=== PATIENT | female | born 1985 | race Caucasian/White ===

== ENCOUNTER → 2018-12-02 15:40 | Outpatient (CLI) | payer MEDICAID, SELFPAY ==
[2017-06-28 22:33] VITALS: BMI 19.5
[2018-12-05 13:08] LABS: HPV Reflexed? NOT INDICATED
== END ==
PROVIDERS: Visit Provider Obstetrics & Gynecology
DX: Z12.4 Encounter for screening for malignant neoplasm of cervix (principal)
CPT/HCPCS: 88175; G0145

== ENCOUNTER 2019-05-17 01:32 | Emergency (ER) | payer MEDICAID, SELFPAY ==
[2019-05-17 01:33] VITALS: BP 132/102; PULSE 109; RESP 18; TEMP 36.7; O2SAT 98; BMI 18.8
--- NOTE | 2019-05-17 01:33 | RAD_ITS ---
HISTORY: TTraumaRAD-EXT/JT ADDITIONAL HISTORY: None provided. COMPARISON: None TECHNIQUE: Right ankle 3 views Number of images including paperwork: 3 FINDINGS: BONES: No acute fracture. JOINTS: No subluxation. SOFT TISSUES: No distinct foreign body. RAD/Ankle min 3 Views IMPRESSION: No acute osseous abnormality. at 0218 Reported and signed by: Mariama Edge MD Electronically Signed: Mariama Edge MD at 2:18 EDT Tel , Service support ,
--- NOTE | 2019-05-17 01:33 | RAD_ITS ---
HISTORY: TTraumaRAD-EXT/JT ADDITIONAL HISTORY: None provided. COMPARISON: None TECHNIQUE: Right tibia fibula 2 views Number of images including paperwork: 3 FINDINGS: BONES: No acute fracture. JOINTS: No subluxation. SOFT TISSUES: No distinct foreign body. RAD/Tibia & Fibula 2 Views IMPRESSION: No acute osseous abnormality. at 0219 Reported and signed by: Mariama Edge MD Electronically Signed: Mairama Edge MD at 2:18 EDT Tel , Service support ,
--- NOTE | 2019-05-17 01:33 | RAD_ITS ---
HISTORY: TTraumaRAD-EXT/JT ADDITIONAL HISTORY: None provided. COMPARISON: None TECHNIQUE: Right foot 3 views Number of images including paperwork: 3 FINDINGS: BONES: No acute fracture. JOINTS: No subluxation. SOFT TISSUES: No distinct foreign body. RAD/Foot min 3 Views IMPRESSION: No acute osseous abnormality. at 0217 Reported and signed by: Mariama Edge MD Electronically Signed: Mariama Edge MD at 2:17 EDT Tel , Service support ,
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
[2019-05-17] MEDS: HYDROcodone Bitartrate/Apap 5/325 Tablet PO (01:41)
[2019-05-17 02:52] VITALS: BP 130/77; PULSE 94; RESP 18; O2SAT 98
== END 2019-05-17 02:54 | disposition home or self-care (01) ==
LOC: ED 02:01
PROVIDERS: Emergency Provider Emergency Medicine
DX: S87.81XA Crushing injury of right lower leg, initial encounter (principal); S80.811A Abrasion, right lower leg, initial encounter; W23.0XXA Caught, crushed, jammed, or pinched between moving objects, initial encounter; Y93.9 Activity, unspecified; Y92.9 Unspecified place or not applicable; E11.9 Type 2 diabetes mellitus without complications; Z79.4 Long term (current) use of insulin; F17.200 Nicotine dependence, unspecified, uncomplicated
CPT/HCPCS: 73590; 73610; 73630; 99284

== ENCOUNTER 2021-07-27 15:51 | Inpatient (IN) | payer MEDICAID, SELFPAY ==
[2021-07-27] VITALS (12 sets, daily range): BP systolic 113–146; BP diastolic 61–94; PULSE 98–123; RESP 15–28; TEMP 36.8–36.9; O2SAT 97–100; BMI 19.5; BMI 15.9
--- NOTE | 2021-07-27 16:09 | ED.VIS.GI ---
HPI HPI - GI History of Present Illness Chief Complaint: Abd Pain Detail of Chief Complaint: Elevated blood sugar. Informant: patient Abdominal Pain/Flank Pain Onset: Days Context: Gradual Onset Timing: Continuous Location: Diffuse Current Severity: Mild Maximum Severity: Mild Worsened by: Nothing Relieved by: Nothing Nausea/Vomiting/Emesis GI Symptom: Positive for Nausea; Negative for Vomiting Diarrhea/Melena/Hematochezia GI Symptom: Positive for Diarrhea Onset: Days Stool Quality: Positive for Loose Severity: Mild Associated Symptoms Associated Symptoms: Negative for Dysuria, Frequency, Hematuria and Urgency Narrative Narrative: 36-year-old female history of diabetes. States last several days she is at elevated blood sugars greater than 300. Associated nausea no vomiting. Diarrhea. Also states she has some abdominal discomfort and bloating. States abdominal discomfort is diffuse. She denies any fever. No dysuria. She is never had any abdominal surgeries. Today her blood sugars were over 500. Prior similar symptoms: Yes Recent Illness/Hospitalization: No PFSH PFSH Medical History Diabetes type 1, controlled Heart murmur Home Medications insulin aspart U-100 100 unit/mL subcutaneous solution 8 unit SC TID #10 ml 09/12/17 [Rx Last Taken 07/26/21] insulin glargine 100 unit/mL (3 mL) subcutaneous pen 24 unit SC QHS #15 ml 09/12/17 [Rx Last Taken 07/26/21] Allergy/AdvReac Type Severity Reaction Status Date / Time No Known Allergies Allergy Verified 05/17/19 01:33 Family History Unknown Asthma Cancer Diabetes Skin cancer Social History Smoking Status: Current every day smoker tobacco type: cigarettes alcohol intake: current substance use type: does not use ROS ROS ED ROS Narrative Nausea and diarrhea. Elevated blood sugar. Abdominal bloating. Review of Systems ROS Unobtainable: Denies due to encephalopathy Constitutional Constitutional ED: Denies chills, fever(s) or subjective ENT ENT ED: Denies ear pain or sore throat Cardiovascular Cardiovascular: Denies chest pain Respiratory/Chest Respiratory/Chest: Denies cough or dyspnea Gastrointestinal Gastrointestinal: Reports abdominal pain, diarrhea and nausea; Denies vomiting Genitourinary Genitourinary ED: Denies dysuria or hematuria Musculoskeletal Musculoskeletal: Denies myalgias Integumentary Denies rash Neurologic Neurologic: Denies headache(s) Psychiatric Psychiatric: Denies depression Endocrine Endocrinology: Denies polyuria Hematologic/Lymphatic Hematologic/Lymphatic: Denies easy bruising Allergic/Immunologic Allergic/Immunologic ED: Denies urticaria EXAM Physical Exam Narrative Exam Narrative: 36-year-old female clinically looks dehydrated. Vital signs are stable afebrile. H EENT exam dry mucous memories. Neck nontender no lymphadenopathy. Lungs clear to auscultation bilaterally. Heart regular rhythm rate about 100. No murmur. Abdomen mildly distended diffusely mildly tender. No peritoneal signs. No hernia or mass. No localizing right upper or right lower quadrant tenderness. Positive bowel sounds. Moving all 4 extremities. Nontender. No edema. Back nontender. Neurologically she is awake and alert moving all 4 extremities. No focal deficits. Const Vital Signs: 07/27/21 15:52 07/27/21 18:01 07/27/21 18:06 Temperature 98.2 F Temperature Source Temporal Pulse Rate 100 123 H Respiratory Rate 18 28 H Blood Pressure 144/94 H 139/89 H Blood Pressure Mean 110 105 Pulse Ox 100 100 Oxygen Delivery Method Room Air Room Air Positive well nourished and well developed; Negative for obese, cachectic, contractures or unkempt General Appearance ED: well developed and NAD; Negative for unkempt, cachectic or contractures Nutritional Appearance: Negative for cachectic or obese HEENT Reports dry mucous membranes normocephalic and atraumatic Mouth ED: Yes dry mucous membranes Mouth: dry mucous membranes Eyes PERRL and EOMs intact bilaterally Neck no lymphadenopathy, supple and no JVD General: Negative for tenderness Resp normal respiratory effort and clear to auscultation bilaterally Auscultation: Negative for rhonchi or wheezes Cardio regular rate, regular rhythm, S1 normal heart sound, S2 normal heart sound and no murmurs GI no masses; Negative for non-tender or non-distended Inspection: abdominal distention Auscultation: normoactive bowel sounds Palpation: soft and tender; Negative for guarding, rigid or rebound tenderness present Back/Spine no CVA tenderness General Back: Negative for CVA tenderness Extremity full ROM General Extremety ED: Negative for edema or tenderness General Extremity: Negative for edema Neuro CN's II-XII intact bilaterally and moves all extremities Sensorium / Orientation: alert, oriented to person, oriented to place and oriented to time; Negative for confused, lethargic or stuporous Motor Exam: strength 5/5 throughout Psych mental status grossly normal Appearance: Negative for unkempt Skin Lesions: no lesions Rashes: no rashes MDM MDM MDM Narrative Medical decision making narrative: 36-year-old female with diabetes with elevated blood sugar rule out DKA versus diabetic hyperglycemia. She also clinically looks dehydrated be treated with IV fluids and has abdominal pain which will require CT and labs. The patient is elevated blood sugar even though she is not in DKA at this time she has a normal anion gap and no acetones. She will be treated with IV fluids and insulin drip which both have been ordered and started. She will be admitted to the ICU. On repeat exam she is currently doing well and is stable. Lab Data Attestation: I reviewed the patient's lab results. Lab results narrative: CBC White count 9.8. Hemoglobin 12.9.. Potassium is 6.1. Glucose 1141. No acetone. test negative. UA shows glucose in urine but no infection. Anion gap is 6 is her normal BUN and creatinine which I find surprising. CAT scan shows gastroparesis with increasing stool throughout her colon is distended bladder. Labs: Laboratory Results - last 24 hr 07/27/21 07/27/21 07/27/21 15:40 15:40 15:40 WBC 9.8 RBC 4.71 Hgb 12.9 Hct 42.4 MCV 90.0 MCH 27.4 MCHC 30.4 L RDW Std Deviation 49.1 H RDW Coeff of Jordon 14.8 H Plt Count 465 H MPV 9.8 Immature Gran % (Auto) 0.400 Neut % (Auto) 85.0 H Lymph % (Auto) 8.9 L [place] % (Auto) 4.8 Eos % (Auto) 0.4 Baso % (Auto) 0.5 Absolute Neuts (auto) 8.3 H Absolute Lymphs (auto) 0.87 Nucleated RBC % 0 Sodium Cancelled Potassium Cancelled Chloride Cancelled Carbon Dioxide Cancelled Anion Gap Cancelled BUN Cancelled Creatinine Cancelled Estim Creat Clear Calc Cancelled Est GFR (MDRD) Af Amer Cancelled Est GFR (MDRD) Non-Af Cancelled BUN/Creatinine Ratio Cancelled Glucose Cancelled Calcium Cancelled Total Bilirubin Cancelled AST Cancelled ALT Cancelled Alkaline Phosphatase Cancelled Total Protein Cancelled Albumin Cancelled Globulin Cancelled Albumin/Globulin Ratio Cancelled Lipase Cancelled Serum , Qual NEGATIVE Urine Color Urine Clarity Urine pH Ur Specific [place] Urine Protein Urine Glucose (UA) Urine Ketones Urine Occult Blood Urine Nitrite Urine Bilirubin Urine Urobilinogen Ur Leukocyte Esterase Urine RBC Urine WBC Ur Squamous Epith Cells Urine Bacteria Urine Mucus Acetone Level POC Glucose 07/27/21 07/27/21 07/27/21 16:21 16:21 17:28 WBC RBC Hgb Hct MCV MCH MCHC RDW Std Deviation RDW Coeff of Jordon Plt Count MPV Immature Gran % (Auto) Neut % (Auto) Lymph % (Auto) [place] % (Auto) Eos % (Auto) Baso % (Auto) Absolute Neuts (auto) Absolute Lymphs (auto) Nucleated RBC % Sodium Potassium Chloride Carbon Dioxide Anion Gap BUN Creatinine Estim Creat Clear Calc Est GFR (MDRD) Af Amer Est GFR (MDRD) Non-Af BUN/Creatinine Ratio Glucose Calcium Total Bilirubin AST ALT Alkaline Phosphatase Total Protein Albumin Globulin Albumin/Globulin Ratio Lipase Serum , Qual Urine Color Straw Urine Clarity Sl. Cloudy Urine pH 7.0 Ur Specific [place] 1.005 Urine Protein Negative Urine Glucose (UA) 1000 H Urine Ketones 5 H Urine Occult Blood Negative Urine Nitrite Negative Urine Bilirubin Negative Urine Urobilinogen Normal Ur Leukocyte Esterase Negative Urine RBC 0 SEEN Urine WBC 0 SEEN Ur Squamous Epith Cells 0-5 SEEN Urine Bacteria 0 SEEN Urine Mucus 0 SEEN Acetone Level NEGATIVE POC Glucose > 500 H* 07/27/21 07/27/21 17:44 17:50 WBC RBC Hgb Hct MCV MCH MCHC RDW Std Deviation RDW Coeff of Jordon Plt Count MPV Immature Gran % (Auto) Neut % (Auto) Lymph % (Auto) [place] % (Auto) Eos % (Auto) Baso % (Auto) Absolute Neuts (auto) Absolute Lymphs (auto) Nucleated RBC % Sodium Cancelled 128 L Potassium Cancelled 6.1 H* Chloride Cancelled 94 L Carbon Dioxide Cancelled 28.0 Anion Gap Cancelled 6 BUN Cancelled 14 Creatinine Cancelled 1.15 H Estim Creat Clear Calc Cancelled 52.46 Est GFR (MDRD) Af Amer Cancelled 68 Est GFR (MDRD) Non-Af Cancelled 56 L BUN/Creatinine Ratio Cancelled 12.2 Glucose Cancelled 1141 H* Calcium Cancelled 9.0 Total Bilirubin 0.30 AST 26 ALT 40 Alkaline Phosphatase 116 Total Protein 7.5 Albumin 3.4 Globulin 4.1 Albumin/Globulin Ratio 0.8 L Lipase 136 Serum , Qual Urine Color Urine Clarity Urine pH Ur Specific [place] Urine Protein Urine Glucose (UA) Urine Ketones Urine Occult Blood Urine Nitrite Urine Bilirubin Urine Urobilinogen Ur Leukocyte Esterase Urine RBC Urine WBC Ur Squamous Epith Cells Urine Bacteria Urine Mucus Acetone Level POC Glucose Radiography Diagnostic Testing: Clinical Impression(s) from Imaging Studies Abdomen/Pelvis CT 07/27/21 16:14 Rhythm Strip Rhythm Strip: Sinus Rhythm Rate: 109 Ectopy: None EKG Initial EKG: Attestation: I personally reviewed and interpreted this EKG as follows: Interpretation: Sinus Rhythm, No Acute Injury Pattern and Sinus Tachycardia Comments: Sinus tachycardia rate of 109 no acute signs of SC or ischemia. She does have peaked T waves. Critical Care Time Critical Care Time: Yes Critical care time (excluding procedures): 30-74 minutes, Discussing w/Patient &/or Family/Director Of Program Management, Discussing w/Consultants, Arranging Admission or Transfer, Performing Direct Patient Care at Bedside and - (33 MIN) Discharge Plan Dx/Rx/DC Orders Clinical Impression: Diabetes mellitus due to underlying condition with hyperosmolarity without nonketotic hyperglycemic-hyperosmolar coma, History of diabetes as a child, Hyperkalemia, Constipation, Diabetic gastroparesis Disposition Disposition: Acute Care [facility]
--- NOTE | 2021-07-27 16:14 | CT_ITS ---
STUDY: CT Abdomen And Pelvis W/ Contrast Injection 07/27/2021 5:11 PM REASON FOR EXAM: Female, 36 years old. Technologist Notes abdominal pain/bloating, hyperglycemia, type 1 diabetes, tubal ligation. abdominal pain TECHNIQUE: Transaxial images were obtained without oral contrast, and IV 75mL Isovue-300 intravenous contrast. Individualized dose optimization techniques were used for this CT. COMPARISON: 16 FINDINGS: The visualized lung bases are unremarkable. The visualized portions of the heart are within normal limits. Normal liver. Normal gallbladder and extrahepatic biliary system. Normal spleen. Normal pancreas. Normal bilateral adrenal glands. No acute findings of the right kidney. No acute findings of the left kidney. Diffuse distention of the stomach filled with food. Normal small intestine. Stool throughout the colon. The appendix is visualized and appears normal. There are calcifications of the abdominal aorta. This is consistent for atherosclerotic disease. There is no abdominal aortic aneurysm. Normal inferior vena cava. Subcentimeter mesenteric lymph nodes. The urinary bladder is distended. This can suggest urinary retention. Normal visualized uterus. There are bilateral tubal ligation clips. Normal abdominal wall. Normal osseous structures. IMPRESSION: (NOT LISTED IN ORDER OF SIGNIFICANCE) The urinary bladder is distended. This can suggest urinary retention. Diffuse distention of the stomach filled with food. This may represent gastroparesis. Other findings as above. Electronically Signed: Melvin Mcdermott MD at 17:24 EST , Service support , CT/Abdomen/Pelvis W IV Cont ONLY
[2021-07-27] MEDS: 0.9% Normal Saline 1,000 ML 999 ML IV ×4 (16:17→22:17)
[2021-07-27 16:26] LABS: Bacteria 0 SEEN /hpf (None Seen); Mucous, Urine 0 SEEN /hpf (<or=2+); Red Blood Cells-Urine 0 SEEN /hpf (0-5); White Blood Cells 0 SEEN /hpf (0-5)
[2021-07-27 16:32] LABS: Absolute Lymphocyte Count 0.87 X10^3/uL (0.83-4.51); Absolute Neutrophil Count 8.3 X10^3/uL (2.0-7.7); Basophil# 0.05 X10^3/uL; Basophil% 0.5 % (0-1); Eosinophil# 0.04 X10^3/uL; Eosinophils% 0.4 % (0-5); Hematocrit 42.4 % (37-47); Hemoglobin 12.9 g/dL (12.0-15.0); Lymphocyte # 0.87 X10^3/ul (0.83-4.51); Lymphocyte % 8.9 % (19-41); Mean Corp Hgb Conc 30.4 g/dL (32-36); Mean Corpuscular Hgb 27.4 pg (27.0-32.0); Mean Platelet Vol. 9.8 fl (6.2-12.0); Monocyte# 0.47 X10^3/uL; Monocyte% 4.8 % (0-10); NRBC Flagged by Analyzer 0 % (0-5); Neutrophil # 8.33 X10^3/uL (2.7-7.7); Platelet Count 465 K/mm3 (150-450); RBC Distribution Width CV 14.8 % (11.6-14.6); RBC Distribution Width SD 49.1 fl (35.1-43.9); Red Blood Count 4.71 M/mm3 (4.2-5.4); White Blood Count 9.8 K/mm3 (4.4-11.0)
[2021-07-27 16:33] LABS: Color, Urine Straw (Yellow); Glucose, Dipstick 1000 mg/dl (Normal); Ketone-Dipstick 5 mg/dl (Negative); Leukocyte Esterase-Dipstick Negative /ul (Negative); Nitrite-Dipstick Negative (Negative); Occult Blood-Urine Negative /ul (Negative); Protein-Dipstick Negative (Negative); Specific Gravity, Urine 1.005 (1.002-1.030); Urine Bilirubin Dipstick Negative (Negative); Urine Clarity Sl. Cloudy (Clear); Urine Urobilinogen Normal (Normal)
[2021-07-27 16:41] LABS: Squamous Epithelial Cells - UA 0-5 SEEN /hpf (5-10)
[2021-07-27] MEDS: 0.9% Normal Saline 1,000 ML 15 ML IV (16:54)
[2021-07-27 16:57] LABS: Internal QC Validated? YES +Cl - CLEAR BKGD; Pregnancy, Serum, hCG Quali. NEGATIVE Negative
[2021-07-27 17:35] LABS: Bedside Glucose > 500 mg/dL (70-110)
--- NOTE | 2021-07-27 17:49 | NUR.TO.PHY ---
Dr. Walker notified of wrong lab results. laboratory equipment installer stated he will be redoing the results and to disregard current. BRIANNE Arzate notified also
--- NOTE | 2021-07-27 18:00 | EKG12_ITS ---
Test Reason : ABDMINAL PAIN Blood Pressure : / mmHG Vent. Rate : 109 BPM Atrial Rate : 109 BPM P-R Int : 130 ms QRS Dur : 078 ms QT Int : 316 ms P-R-T Axes : 044 090 062 degrees QTc Int : 425 ms Sinus tachycardia Septal infarct , age undetermined , cannot be excluded Abnormal ECG Confirmed by MARIAM LOYA, RUSTY ([id number]), publication editor MONY NERI ([id number]) on 07/31/2021 10:25:28 AM Referred By: ABISAI Confirmed By:RUSTY BECERRA MD
[2021-07-27 18:19] LABS: ALB/GLOB Ratio 0.8 RATIO (0.9-2.4); AST(SGOT) 26 U/L (15-37); Albumin, Serum 3.4 g/dL (3.2-5.0); BUN 14 mg/dL (7-18); BUN/Creat Ratio 12.2 RATIO (10-20); Creatinine, Serum 1.15 mg/dL (0.55-1.02); Estimated Creatinine Clearance 52.46 ml/min; Globulin 4.1 g/dL (2.2-4.2); Glucose 1141 mg/dL (74-106); Lipase 136 U/L (73-393); Protein, Total 7.5 g/dL (6.4-8.2)
[2021-07-27 18:20] LABS: Alanine Aminotransfer ALT/SGPT 40 U/L (13-56); Alkaline Phosphatase 116 U/L (45-117); Sodium Level 128 mmol/L (136-145)
[2021-07-27 18:21] LABS: Anion Gap 6 (5-15); Chloride 94 mmol/L (98-107); Potassium 6.1 mmol/L (3.5-5.1)
[2021-07-27 18:25] LABS: EST Glomerular Filtration Rate 56 mL/min (>60); Est Glom Filt Rate - Afr Amer 68 mL/min (>60)
--- NOTE | 2021-07-27 18:32 | PCM.HP.STD ---
HPI - General General Date of Admission: 07/27/21 Date of Service: 07/27/21 Chief Complaint: Abdominal pain, hyperglycemia, malaise HPI Narrative ESTHER WEEMS, is a 36 F who presents to the emergency room at [facility] with a chief complaint of generalized abdominal pain, elevated blood sugar, and malaise. Patient is a type I diabetic, she tells me that she has been diabetic since the age of 10. Patient states her facilities mechanical design engineer is in [facility], she states she has been living out of hotels and her car. Labs obtained were obtained in the emergency room, patient's CBC was unremarkable except for a platelet count of 465,000. Patient's chemistry profile was abnormal for a sodium of 128, potassium of 6.1, chloride of 94, creatinine of 1.15, and glucose of 1141. Patient serum acetone level was negative, patient's urinalysis was remarkable for a urine glucose over thousand and ketones of 5 mg/dL. Patient had a CAT scan of her abdomen performed, it showed a large amount of stool throughout the colon, it also showed gastric contents suggestive of gastroparesis. Patient also had a distended urinary bladder. A Noyola catheter will be inserted in the ER, patient will be placed on insulin drip and she will be admitted to ICU for nonketotic hyperosmolar hyperglycemia. Patient will be given IV fluids, labs will be monitored. [facility] Medical History Diabetes type 1, controlled Heart murmur Home Medications insulin aspart U-100 100 unit/mL subcutaneous solution 8 unit SC TID #10 ml 09/12/17 [Rx Last Taken 07/26/21] insulin glargine 100 unit/mL (3 mL) subcutaneous pen 24 unit SC QHS #15 ml 09/12/17 [Rx Last Taken 07/26/21] Allergy/AdvReac Type Severity Reaction Status Date / Time No Known Allergies Allergy Verified 05/17/19 01:33 Family History Unknown Asthma Cancer Diabetes Skin cancer Social History Smoking Status: Current every day smoker tobacco type: cigarettes alcohol intake: current substance use type: does not use ROS Constitutional Constitutional: Reports fatigue, malaise and weakness; Denies anorexia, change in weight, fever(s) or night sweats Eyes Eyes: Denies blurry vision, change in eye color, change in vision, discharge from eye(s) or eye pain ENT HEENT: Denies abnormal hearing, dysphagia or ear pain Cardiovascular Cardiovascular: Denies chest pain, claudication, dyspnea on exertion, edema, lightheadedness or palpitations Respiratory/Chest Respiratory/Chest: Denies cough, hemoptysis, shortness of breath at rest or shortness of breath with exertion Gastrointestinal Gastrointestinal: Reports abdominal pain; Denies constipation, diarrhea, dyspepsia, hematemesis, hematochezia, melena, nausea or vomiting Genitourinary Genitourinary: Denies burning urination, difficulty urinating, dysuria, hematuria, urinary frequency, urinary hesitancy, urinary incontinence or urinary urgency Musculoskeletal Musculoskeletal: Denies back pain, joint pain, joint stiffness, joint swelling, myalgias or neck pain Neurologic Neurologic: Denies abnormal gait, abnormal speech, dizziness, focal weakness, headache(s), loss of vision, numbness, other visual disturbances, paresthesias, syncope or tingling Psychiatric Psychiatric: Denies anxiety, cognitive impairment, depression, irritability, mood swings or suicidal ideation Endocrine Endocrinology: Denies change in body appearance, cold intolerance, excessive sweating, heat intolerance, polydipsia or polyuria Hematologic/Lymphatic Hematologic/Lymphatic: Denies none, anemia, easy bleeding, easy bruising or lymphadenopathy Allergic/Immunologic Allergic/Immunologic: Denies rhinitis, urticaria, eczemia or asthma Vital Signs Vital Signs Vital Signs: 07/27/21 15:52 07/27/21 18:01 07/27/21 18:06 Temperature 98.2 F Temperature Source Temporal Pulse Rate 100 123 H Respiratory Rate 18 28 H Blood Pressure 144/94 H 139/89 H Blood Pressure Mean 110 105 Pulse Ox 100 100 Oxygen Delivery Method Room Air Room Air Weight Weight: 50.1 kg Body Mass Index (BMI) 19.5 Physical Exam Const alert, oriented x3 and no apparent distress Constitutional Narrative: Patient appears fatigued General Appearance: cooperative, well kempt and well developed Orientation / Consciousness: awake, oriented to person, oriented to place and oriented to time HEENT normocephalic, head/scalp atraumatic and hearing grossly normal bilaterally HEENT Narrative: Mucous membranes were dry Eyes PERRL, EOMs intact bilaterally and conjunctivae normal Neck nuchal rigidity, supple, no JVD, thyroid normal and no carotid bruits General: trachea midline Resp normal respiratory effort, no retractions, no use of accessory muscles and clear to auscultation bilaterally Auscultation: Negative for rales, rhonchi or wheezes Cardio regular rate, regular rhythm, S1 normal heart sound, S2 normal heart sound, no murmurs, no rub and no gallops GI normal to inspection, nondistended, normoactive bowel sounds, soft to palpation, non-tender and non-distended Extremity normal to inspection and no clubbing, cyanosis or edema Skin no rashes or lesions noted General Skin Exam: no breakdown Neuro oriented x3, CN's II-XII intact bilaterally, no focal motor deficits and no sensory deficits noted Sensorium / Orientation: awake and alert Speech: speech normal Psych thought process normal and affect normal Results Lab / Micro Data Result Diagrams: 07/27/21 15:40 07/27/21 17:50 Labs: Laboratory Results - last 24 hr 07/27/21 15:40: WBC 9.8, RBC 4.71, Hgb 12.9, Hct 42.4, MCV 90.0, MCH 27.4, MCHC 30.4 L, RDW Std Deviation 49.1 H, RDW Coeff of Jordon 14.8 H, Plt Count 465 H, MPV 9.8, Immature Gran % (Auto) 0.400, Neut % (Auto) 85.0 H, Lymph % (Auto) 8.9 L, [place] % (Auto) 4.8, Eos % (Auto) 0.4, Baso % (Auto) 0.5, Absolute Neuts (auto) 8.3 H, Absolute Lymphs (auto) 0.87, Nucleated RBC % 0 07/27/21 15:40: Sodium Cancelled, Potassium Cancelled, Chloride Cancelled, Carbon Dioxide Cancelled, Anion Gap Cancelled, BUN Cancelled, Creatinine Cancelled, Estim Creat Clear Calc Cancelled, Est GFR (MDRD) Af Amer Cancelled, Est GFR (MDRD) Non-Af Cancelled, BUN/Creatinine Ratio Cancelled, Glucose Cancelled, Calcium Cancelled, Total Bilirubin Cancelled, AST Cancelled, ALT Cancelled, Alkaline Phosphatase Cancelled, Total Protein Cancelled, Albumin Cancelled, Globulin Cancelled, Albumin/Globulin Ratio Cancelled, Lipase Cancelled 07/27/21 15:40: Serum , Qual NEGATIVE 07/27/21 16:21: Acetone Level NEGATIVE 07/27/21 16:21: Urine Color Straw, Urine Clarity Sl. Cloudy, Urine pH 7.0, Ur Specific [place] 1.005, Urine Protein Negative, Urine Glucose (UA) 1000 H, Urine Ketones 5 H, Urine Occult Blood Negative, Urine Nitrite Negative, Urine Bilirubin Negative, Urine Urobilinogen Normal, Ur Leukocyte Esterase Negative, Urine RBC 0 SEEN, Urine WBC 0 SEEN, Ur Squamous Epith Cells 0-5 SEEN, Urine Bacteria 0 SEEN, Urine Mucus 0 SEEN 07/27/21 17:28: POC Glucose > 500 H* 07/27/21 17:44: Sodium Cancelled, Potassium Cancelled, Chloride Cancelled, Carbon Dioxide Cancelled, Anion Gap Cancelled, BUN Cancelled, Creatinine Cancelled, Estim Creat Clear Calc Cancelled, Est GFR (MDRD) Af Amer Cancelled, Est GFR (MDRD) Non-Af Cancelled, BUN/Creatinine Ratio Cancelled, Glucose Cancelled, Calcium Cancelled 07/27/21 17:50: Sodium 128 L, Potassium 6.1 H*, Chloride 94 L, Carbon Dioxide 28.0, Anion Gap 6, BUN 14, Creatinine 1.15 H, Estim Creat Clear Calc 52.46, Est GFR (MDRD) Af Amer 68, Est GFR (MDRD) Non-Af 56 L, BUN/Creatinine Ratio 12.2, Glucose 1141 H*, Calcium 9.0, Total Bilirubin 0.30, AST 26, ALT 40, Alkaline Phosphatase 116, Total Protein 7.5, Albumin 3.4, Globulin 4.1, Albumin/Globulin Ratio 0.8 L, Lipase 136 Radiology Impression Abdomen/Pelvis CT 07/27/21 16:14 Assessment & Plan Assessment/Plan (1) Nonketotic hyperglycinemia: PLAN: 1. Nonketotic hyperosmolar hyperglycemia-patient will be started on an insulin drip, she will be given IV fluids, she will be admitted to ICU and labs will be monitored. #2 type 1 [id number] will need close follow-up with her facilities mechanical design engineer after discharge #3 hyperkalemia-this will be corrected after fluid administration and insulin administration, labs will be monitored #4 abdominal pain secondary to constipation-patient will be given lactulose #5 dehydration-IV fluids will be administered Charges/Coding Visit Charges Inpatient E&M: 14645 Init Hosp L3
[2021-07-27 19:41] LABS: Bedside Glucose > 500 mg/dL (70-110)
[2021-07-27 21:13] LABS: Anion Gap 9 (5-15); BUN 18 mg/dL (7-18); Calcium,Total 8.7 mg/dL (8.5-10.1); Chloride 104 mmol/L (98-107); Creatinine, Serum 1.06 mg/dL (0.55-1.02); EST Glomerular Filtration Rate 62 mL/min (>60); Est Glom Filt Rate - Afr Amer 75 mL/min (>60); Estimated Creatinine Clearance 46.38 ml/min; Glucose 671 mg/dL (74-106); Potassium 4.2 mmol/L (3.5-5.1); Sodium Level 137 mmol/L (136-145)
[2021-07-27] MEDS: Lactulose 20 GM/30 ML UDC 30 GM PO (21:28)
[2021-07-27 22:26] LABS: Bedside Glucose > 500 mg/dL (70-110)
[2021-07-27 22:26] LABS: Bedside Glucose 426 mg/dL (70-110)
[2021-07-27] MEDS: Dext 5%-0.45% NS 1,000 ML 200 ML IV (23:20)
[2021-07-27] MEDS: Acetaminophen 325 MG Tablet 650 MG PO (23:23)
[2021-07-28] VITALS (21 sets, daily range): BP systolic 100–147; BP diastolic 58–99; PULSE 90–112; RESP 12–22; TEMP 36.6–37.4; O2SAT 96–100
[2021-07-28 00:21] LABS: Bedside Glucose 255 mg/dL (70-110)
[2021-07-28 00:21] LABS: Bedside Glucose 192 mg/dL (70-110)
[2021-07-28 00:21] LABS: Bedside Glucose 207 mg/dL (70-110)
[2021-07-28 00:26] LABS: Anion Gap 7 (5-15); BUN 12 mg/dL (7-18); BUN/Creat Ratio 17.9 RATIO (10-20); Calcium,Total 7.9 mg/dL (8.5-10.1); Chloride 113 mmol/L (98-107); Creatinine, Serum 0.67 mg/dL (0.55-1.02); EST Glomerular Filtration Rate 104 mL/min (>60); Est Glom Filt Rate - Afr Amer 126 mL/min (>60); Estimated Creatinine Clearance 73.37 ml/min; Glucose 242 mg/dL (74-106); Potassium 4.2 mmol/L (3.5-5.1); Sodium Level 144 mmol/L (136-145)
[2021-07-28 01:55] LABS: Bedside Glucose 181 mg/dL (70-110)
[2021-07-28 04:13] LABS: Absolute Lymphocyte Count 2.31 X10^3/uL (0.83-4.51); Basophil# 0.04 X10^3/uL; Basophil% 0.5 % (0-1); Eosinophil# 0.11 X10^3/uL; Eosinophils% 1.4 % (0-5); Hematocrit 31.3 % (37-47); Hemoglobin 10.2 g/dL (12.0-15.0); Lymphocyte # 2.31 X10^3/ul (0.83-4.51); Lymphocyte % 28.8 % (19-41); Mean Corp Hgb Conc 32.6 g/dL (32-36); Mean Corpuscular Hgb 27.6 pg (27.0-32.0); Mean Corpuscular Volume 84.8 fL (81-99); Mean Platelet Vol. 9.3 fl (6.2-12.0); Monocyte# 0.56 X10^3/uL; NRBC Flagged by Analyzer 0 % (0-5); Neutrophil # 4.97 X10^3/uL (2.7-7.7); Neutrophil % 62.1 % (47-70); Platelet Count 357 K/mm3 (150-450); RBC Distribution Width CV 14.3 % (11.6-14.6); RBC Distribution Width SD 44.5 fl (35.1-43.9); Red Blood Count 3.69 M/mm3 (4.2-5.4)
[2021-07-28 04:33] LABS: Anion Gap 8 (5-15); BUN 12 mg/dL (7-18); BUN/Creat Ratio 20.4 RATIO (10-20); Calcium,Total 7.6 mg/dL (8.5-10.1); Chloride 109 mmol/L (98-107); Creatinine, Serum 0.59 mg/dL (0.55-1.02); EST Glomerular Filtration Rate 121 mL/min (>60); Est Glom Filt Rate - Afr Amer 147 mL/min (>60); Estimated Creatinine Clearance 83.32 ml/min; Glucose 336 mg/dL (74-106); Potassium 3.5 mmol/L (3.5-5.1); Sodium Level 139 mmol/L (136-145)
[2021-07-28] MEDS: Insulin Lispro 100 UNIT/ML INSULN.PEN 8 UNIT SC ×3 (07:57→16:34)
[2021-07-28] MEDS: Insulin Lispro 100 UNIT/ML INSULN.PEN SC ×4 (07:57→21:17)
[2021-07-28 08:01] LABS: Bedside Glucose 318 mg/dL (70-110)
[2021-07-28 08:46] LABS: Hemoglobin A1c > 14.0 % (3.8-5.6)
--- NOTE | 2021-07-28 08:48 | PN.HOSP_ITS ---
Subjective Subjective Resting comfortably. No issues overnight. Objective Data Objective Data Vital Signs: Vital Signs Temp Pulse Resp BP Pulse Ox 97.9 F 97 14 131/90 H 99 07/28/21 04:00 07/28/21 07:00 07/28/21 07:00 07/28/21 07:00 07/28/21 07:00 Oxygen Delivery Method Room Air Weight: 98 lb 3.2 oz Body Mass Index (BMI) 15.9 Intake & Output: Intake and Output for Last 24 Hours 07/27/21 07/28/21 07/29/21 03:59 03:59 03:59 Intake Total 4718.98 / 4720.91 251.93 / 251.93 Output Total 1725 / 1725 550 / 550 Balance 2993.98 / 2995.91 -298.07 / -298.07 Lab / Micro Data Result Diagrams: 07/28/21 03:45 07/28/21 03:45 Labs: Laboratory Results - last 24 hr 07/27/21 15:40: WBC 9.8, RBC 4.71, Hgb 12.9, Hct 42.4, MCV 90.0, MCH 27.4, MCHC 30.4 L, RDW Std Deviation 49.1 H, RDW Coeff of Jordon 14.8 H, Plt Count 465 H, MPV 9.8, Immature Gran % (Auto) 0.400, Neut % (Auto) 85.0 H, Lymph % (Auto) 8.9 L, [place] % (Auto) 4.8, Eos % (Auto) 0.4, Baso % (Auto) 0.5, Absolute Neuts (auto) 8.3 H, Absolute Lymphs (auto) 0.87, Nucleated RBC % 0 07/27/21 15:40: Sodium Cancelled, Potassium Cancelled, Chloride Cancelled, Carbon Dioxide Cancelled, Anion Gap Cancelled, BUN Cancelled, Creatinine Cancelled, Estim Creat Clear Calc Cancelled, Est GFR (MDRD) Af Amer Cancelled, Est GFR (MDRD) Non-Af Cancelled, BUN/Creatinine Ratio Cancelled, Glucose Cancelled, Calcium Cancelled, Total Bilirubin Cancelled, AST Cancelled, ALT Cancelled, Alkaline Phosphatase Cancelled, Total Protein Cancelled, Albumin Cancelled, Globulin Cancelled, Albumin/Globulin Ratio Cancelled, Lipase Cancelle d 07/27/21 15:40: Serum , Qual NEGATIVE 07/27/21 16:21: Acetone Level NEGATIVE 07/27/21 16:21: Urine Color Straw, Urine Clarity Sl. Cloudy, Urine pH 7.0, Ur Specific [place] 1.005, Urine Protein Negative, Urine Glucose (UA) 1000 H, Urine Ketones 5 H, Urine Occult Blood Negative, Urine Nitrite Negative, Urine Bilirubin Negative, Urine Urobilinogen Normal, Ur Leukocyte Esterase Negative, Urine RBC 0 SEEN, Urine WBC 0 SEEN, Ur Squamous Epith Cells 0-5 SEEN, Urine Bacteria 0 SEEN, Urine Mucus 0 SEEN 07/27/21 17:28: POC Glucose > 500 H* 07/27/21 17:44: Sodium Cancelled, Potassium Cancelled, Chloride Cancelled, Carbon Dioxide Cancelled, Anion Gap Cancelled, BUN Cancelled, Creatinine Cancelled, Estim Creat Clear Calc Cancelled, Est GFR (MDRD) Af Amer Cancelled, Est GFR (MDRD) Non-Af Cancelled, BUN/Creatinine Ratio Cancelled, Glucose Cancelled, Calcium Cancelled 07/27/21 17:50: Sodium 128 L, Potassium 6.1 H*, Chloride 94 L, Carbon Dioxide 28.0, Anion Gap 6, BUN 14, Creatinine 1.15 H, Estim Creat Clear Calc 52.46, Est GFR (MDRD) Af Amer 68, Est GFR (MDRD) Non-Af 56 L, BUN/Creatinine Ratio 12.2, Glucose 1141 H*, Calcium 9.0, Total Bilirubin 0.30, AST 26, ALT 40, Alkaline Phosphatase 116, Total Protein 7.5, Albumin 3.4, Globulin 4.1, Albumin/Globulin Ratio 0.8 L, Lipase 136 07/27/21 19:35: POC Glucose > 500 H* 07/27/21 20:14: POC Glucose > 500 H* 07/27/21 20:36: Sodium 137, Potassium 4.2, Chloride 104, Carbon Dioxide 24.0, Anion Gap 9, BUN 18, Creatinine 1.06 H, Estim Creat Clear Calc 46.38, Est GFR (MDRD) Af Amer 75, Est GFR (MDRD) Non-Af 62, BUN/Creatinine Ratio 17.0, Glucose 671 H*, Calcium 8.7 07/27/21 21:26: POC Glucose 426 H 07/27/21 22:23: POC Glucose 255 H 07/27/21 23:08: POC Glucose 207 H 07/27/21 23:30: Sodium 144, Potassium 4.2, Chloride 113 H, Carbon Dioxide 24.0, Anion Gap 7, BUN 12, Creatinine 0.67, Estim Creat Clear Calc 73.37, Est GFR (MDRD) Af Amer 126, Est GFR (MDRD) Non-Af 104, BUN/Creatinine Ratio 17.9, Glucose 242 H, Calcium 7.9 L 07/28/21 00:14: POC Glucose 192 H 07/28/21 01:43: POC Glucose 181 H 07/28/21 03:45: Sodium 139, Potassium 3.5, Chloride 109 H, Carbon Dioxide 22.0, Anion Gap 8, BUN 12, Creatinine 0.59, Estim Creat Clear Calc 83.32, Est GFR (MDRD) Af Amer 147, Est GFR (MDRD) Non-Af 121, BUN/Creatinine Ratio 20.4 H, Glucose 336 H, Calcium 7.6 L 07/28/21 03:45: WBC 8.0, RBC 3.69 L, Hgb 10.2 L, Hct 31.3 L, MCV 84.8 D, MCH 27.6, MCHC 32.6 D, RDW Std Deviation 44.5 H, RDW Coeff of Jordon 14.3, Plt Count 357, MPV 9.3, Immature Gran % (Auto) 0.200, Neut % (Auto) 62.1, Lymph % (Auto) 28.8, [place] % (Auto) 7.0, Eos % (Auto) 1.4, Baso % (Auto) 0.5, Absolute Neuts (auto) 5.0, Absolute Lymphs (auto) 2.31, Nucleated RBC % 0 07/28/21 03:45: Hemoglobin A1c > 14.0 H 07/28/21 07:52: POC Glucose 318 H Radiography Diagnostic Testing: Radiology Impression Abdomen/Pelvis CT 07/27/21 16:14 Rhythm Strip Rhythm Strip: Sinus Rhythm Rate: 109 Ectopy: None Physical Exam Const alert, oriented x3 and no apparent distress General Appearance: cooperative HEENT normocephalic and moist oral mucous membranes Eyes PERRL, EOMs intact bilaterally and conjunctivae normal Neck supple and no JVD Resp normal respiratory effort, no retractions, no use of accessory muscles and clear to auscultation bilaterally Auscultation: Negative for crackles, rales, rhonchi or wheezes Cardio regular rate, regular rhythm, S1 normal heart sound, S2 normal heart sound and no murmurs GI soft to palpation, non-tender and non-distended; Negative for hepatosplenomegaly Extremity no clubbing, cyanosis or edema Skin no rashes or lesions noted Neuro no focal motor deficits and no sensory deficits noted Psych affect normal Appearance: appropriate Assessment & Plan Assessment/Plan (1) Nonketotic hyperglycinemia: PLAN: 1. Nonketotic hyperosmolar hyperglycemia/DM 1 -Very few ketones in the urine and no acetone in the blood -She is off of an insulin drip and is placed on long-acting insulin as well as 3 times daily insulin with meals -Accu-Cheks AC at bedtime, will make adjustments as necessary and monitor -Her diabetes is completely out of control, her A1c on admission was over 14 -Continue with IV fluids for dehydration, she did receive 2 doses of lactulose for constipation DVT: Ambulation Charges/Coding Visit Charges Inpatient E&M: 03426 Subs Hosp L2
--- NOTE | 2021-07-28 10:46 | CASEMGMT ---
Addendum entered by Yrn Curiel 07/28/21 14:57: [facility] Van transportation arranged for pick-up @ 1300 to take pt to Dashawn Luis NP and Dr Puckett's appts. Addendum entered by Yrn Curiel 07/28/21 14:41: Dr Puckett's office has available appt for Aug 08 @ 3 PM. Dashawn Luis, DIRECTOR WEIGHTS AND MEASURES for Dr Hein (PCP), has an appt available also on Aug 08 @ 2 PM. Pt made aware. She states she would like to get established w/both Dr Hein and Dr Puckett and would like these appts. Appts scheduled and documented in pt's discharge plan. Mercedes, SW, aware, as pt will need transportation. Original Note: RN CM CRITICAL CARE CNS CM to room to meet with patient for initial transition planning/care coordination assessment. BRIANNE JOHNSON introduced self and role at [facility]. Pt voices understanding and consents to assessment at this time. Pt resting in bed in no distress at this time. Pt is A/O at this time and answers all questions appropriately. Care providers, pharmacy, and demographics verified/updated at this time. PCP: No PCP. Pt states she saw someone in February in [place] for a check-up for my diabetes but does not remember her name. Pt provided w/list of local PCP's and also [facility] transportation contact info. She was made aware they can take her to any [facility] office or affiliate office. Specialists: None. Pt given Dr Puckett Rac Card and made aware she is affiliate of [facility] and [facility] Van transportation could provide assistance to her office, if needed. Pt is interested in seeing Dr Puckett. TC placed to Dr Puckett's office. They are in-network w/pt's insurance. Referral to PCP is not required, but preferred. Next available appt would be in Oct. Pt made aware. She states she would like to have an appt scheduled. [facility]acy[facility] Insulin/supplies: Pt has glucometer and test strips w/her. She just picked up insulin syringes @ [facility] in [place] a couple days ago, but states they were in her and her husbands car and she does not know if they are still in the car. She is also out of lancets/needles for her True Draw lancet device. She states she has alcohol swabs. TC to [facility] and spoke w/Adri. She confirms pt did roller picker insulin syringes a couple days ago, and per insurance, she would not be able to refill them again until 08/15. They do not sell insulin syringes OTC. She confirms there is a refill remaining on the lancets and she will get those ready for her to be picked up. She also states they were in the process of refilling her insulin and that will be ready for pt to roller picker when she is ready. Pt made aware of all of the above. She was also made aware that [facility] does sell insulin syringes OTC. Box of 100 is <$13. DME: Pt does not use any other DME. Insurance: [employer] Prescription Benefit: Yes LNOK: , Arturo. She states her and her only have one cell phone and she has the phone w/her. She does not know how to contact him. Zander and Krystle Marquez are listed on pt's demographics. They are her mother and [id number] and they also would not know how to contact her . Pt has 2 children, ages 16 and 14 and they are living w/her in-laws currently. Pt states, They're safe. Living Arrangements: Pt states she and her have been living out of their car for about a year. 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 Her and her have one vehicle and she does not know where he is at this time. PLAN: TBD. SW to talk w/pt about current living situation. Cheli HAND RN CM
[2021-07-28] MEDS: Glucerna Shake 120 ML LIQUID PO ×3 (11:50→21:21)
[2021-07-28 12:01] LABS: Bedside Glucose 284 mg/dL (70-110)
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
--- NOTE | 2021-07-28 16:05 | PCS.PANDOC ---
PANDEMIC DOCUMENTATION INITIATED: Date: 07/28/2021 Time: 2014
[2021-07-28 16:46] LABS: Bedside Glucose 378 mg/dL (70-110)
--- NOTE | 2021-07-28 16:54 | CASEMGMT ---
Social Work RODRIGUEZ spoke with [facility] [place] [facility] who confirms that pt will need to call on day of discharge and if bed is available, pt can be admitted to the Longterm. [facility] does not provide transportation. Pt given phone number of [place] [facility] [place] and pt agreeable to transfer to [facility] via a Taxi. Pt will need insulin and syringes at time of discharge. SW spoke with pharmacy and assistance program can be used for this. RX assistance program form completed. SW met with pt and pt continues to be agreeable to admission to [facility]. SW will remain available if further needs arise. TOMASZ Jack
[2021-07-28 21:21] LABS: Bedside Glucose 448 mg/dL (70-110)
[2021-07-29] VITALS (9 sets, daily range): BP systolic 89–118; BP diastolic 65–75; PULSE 97–115; RESP 16–18; TEMP 36.3–36.9; O2SAT 98–100
[2021-07-29 03:05] LABS: Absolute Neutrophil Count 5.3 X10^3/uL (2.0-7.7); Basophil# 0.04 X10^3/uL; Basophil% 0.5 % (0-1); Eosinophil# 0.13 X10^3/uL; Eosinophils% 1.7 % (0-5); Hemoglobin 12.2 g/dL (12.0-15.0); Lymphocyte % 21.1 % (19-41); Mean Corp Hgb Conc 31.3 g/dL (32-36); Mean Corpuscular Hgb 27.7 pg (27.0-32.0); Mean Corpuscular Volume 88.4 fL (81-99); Mean Platelet Vol. 9.9 fl (6.2-12.0); Monocyte# 0.49 X10^3/uL; Monocyte% 6.5 % (0-10); NRBC Flagged by Analyzer 0 % (0-5); Neutrophil # 5.29 X10^3/uL (2.7-7.7); Neutrophil % 69.9 % (47-70); POSITIVE COUNT YES; Platelet Count 219 K/mm3 (150-450); RBC Distribution Width CV 14.7 % (11.6-14.6); RBC Distribution Width SD 47.4 fl (35.1-43.9); Red Blood Count 4.41 M/mm3 (4.2-5.4); White Blood Count 7.6 K/mm3 (4.4-11.0)
[2021-07-29 03:09] LABS: Differential Indicated SCAN CRITERIA MET
[2021-07-29 03:27] LABS: Anion Gap 10 (5-15); BUN 18 mg/dL (7-18); BUN/Creat Ratio 24.9 RATIO (10-20); Chloride 103 mmol/L (98-107); Creatinine, Serum 0.72 mg/dL (0.55-1.02); EST Glomerular Filtration Rate 96 mL/min (>60); Est Glom Filt Rate - Afr Amer 116 mL/min (>60); Glucose 549 mg/dL (74-106); Potassium 5.4 mmol/L (3.5-5.1); Sodium Level 133 mmol/L (136-145)
[2021-07-29 04:09] LABS: Differential Comment SCANNED; Platelet Estimate ADEQUATE (ADEQ)
[2021-07-29 07:25] LABS: Bedside Glucose > 500 mg/dL (70-110)
[2021-07-29] MEDS: Insulin Lispro 100 UNIT/ML INSULN.PEN SC ×2 (07:38→12:13)
[2021-07-29] MEDS: Insulin Lispro 100 UNIT/ML INSULN.PEN 20 UNIT SC ×3 (07:38→17:03)
[2021-07-29] MEDS: 0.9% Normal Saline 1,000 ML 100 ML IV (09:18)
[2021-07-29] MEDS: Glucerna Shake 120 ML LIQUID PO ×4 (09:20→22:15)
--- NOTE | 2021-07-29 10:57 | PN.HOSP_ITS ---
Subjective Subjective Doing well, feels better today. Blood sugars are still elevated and will be adjusting her insulin accordingly. She can likely be transferred out of the ICU today Objective Data Objective Data Vital Signs: Vital Signs Temp Pulse Resp BP Pulse Ox 97.3 F L 104 H 16 118/68 98 07/29/21 07:50 07/29/21 07:50 07/29/21 07:50 07/29/21 07:50 07/29/21 07:50 Oxygen Delivery Method Room Air Weight: 97 lb 3.582 oz Body Mass Index (BMI) 15.9 Intake & Output: Intake and Output for Last 24 Hours 07/28/21 07/29/21 07/30/21 03:59 03:59 03:59 Intake Total 4718.98 / 4720.91 1331.93 / 1331.93 180 / 180 Output Total 1725 / 1725 1250 / 1250 Balance 2993.98 / 2995.91 81.93 / 81.93 180 / 180 Medical Nutrition Assessment Dietitian: Malnutrition Criteria Met Start: 07/28/21 10:24 Freq: Status: Active Protocol: Document 07/28/21 10:26 AG (Rec: 07/28/21 10:26 AG [id number]) Nutrition Malnutrition Evidence of Malnutrition Exists Yes Malnutrition (severe): Acute Illness/Injury Evidenced By Suboptimal Energy Intake ( Severe),Weight Loss (Severe) Clinical Problem Acute Disease or Injury Related Malnutrition Etiology severe acute malnutrition r/t inadequate energy intake in context of social/ environmental circumstances Signs/Symptoms as evidenced by estimated PO intake meeting <50% of estimated nutritional needs x 1 month, unintentional wt loss of 6.8#/6.5% x 1 month, BMI 17.4 Status Active Problem Recommendation Dietitian Recommendations/Changes continue CHO controlled diet as tolerated; will add 120mL glucerna ONS 4x/day w/ medpass . Lab / Micro Data Result Diagrams: 07/29/21 02:55 07/29/21 02:55 Labs: Laboratory Results - last 24 hr 07/28/21 11:48: POC Glucose 284 H 07/28/21 16:33: POC Glucose 378 H 07/28/21 21:17: POC Glucose 448 H 07/29/21 02:55: WBC 7.6, RBC 4.41, Hgb 12.2, Hct 39.0, MCV 88.4, MCH 27.7, MCHC 31.3 L, RDW Std Deviation 47.4 H, RDW Coeff of Jordon 14.7 H, Plt Count 219, MPV 9.9, Immature Gran % (Auto) 0.300, Neut % (Auto) 69.9, Lymph % (Auto) 21.1, [place] % (Auto) 6.5, Eos % (Auto) 1.7, Baso % (Auto) 0.5, Absolute Neuts (auto) 5.3, Absolute Lymphs (auto) 1.60, Nucleated RBC % 0, Differential Comment SCANNED, Platelet Estimate ADEQUATE 07/29/21 02:55: Sodium 133 L, Potassium 5.4 H, Chloride 103, Carbon Dioxide 20.0 L, Anion Gap 10, BUN 18, Creatinine 0.72, Estim Creat Clear Calc 74.50, Est GFR (MDRD) Af Amer 116, Est GFR (MDRD) Non-Af 96, BUN/Creatinine Ratio 24.9 H, Glucose 549 H*, Calcium 8.0 L 07/29/21 07:23: POC Glucose > 500 H* Rhythm Strip Rhythm Strip: Sinus Rhythm Rate: 109 Ectopy: None Physical Exam Const alert, oriented x3 and no apparent distress General Appearance: cooperative HEENT normocephalic and moist oral mucous membranes Eyes PERRL, EOMs intact bilaterally and conjunctivae normal Neck supple and no JVD Resp normal respiratory effort, no retractions, no use of accessory muscles and clear to auscultation bilaterally Auscultation: Negative for crackles, rales, rhonchi or wheezes Cardio regular rate, regular rhythm, S1 normal heart sound, S2 normal heart sound and no murmurs GI soft to palpation, non-tender and non-distended; Negative for hepatosplenomegaly Extremity no clubbing, cyanosis or edema Skin no rashes or lesions noted Neuro no focal motor deficits and no sensory deficits noted Psych affect normal Appearance: appropriate Assessment & Plan Assessment/Plan (1) Nonketotic hyperglycinemia: PLAN: 1. Nonketotic hyperosmolar hyperglycemia/DM 1 -Very few ketones in the urine and no acetone in the blood -She is off of an insulin drip and is placed on long-acting insulin as well as 3 times daily insulin with meals -Accu-Cheks AC at bedtime, will make adjustments as necessary and monitor -Her diabetes is completely out of control, her A1c on admission was over 14 -Continue with IV fluids for dehydration, she did receive 2 doses of lactulose for constipation DVT: Ambulation Charges/Coding Visit Charges Inpatient E&M: 39133 Subs Hosp L2
[2021-07-29 13:41] LABS: Bedside Glucose 302 mg/dL (70-110)
[2021-07-29 16:45] LABS: Bedside Glucose 93 mg/dL (70-110)
[2021-07-29] MEDS: 0.9% Saline Lock 10 ML Syringe IV (18:38)
--- NOTE | 2021-07-29 21:01 | CM.ED ---
SW Note SW called ICU to check on patient. Staff reports she is on MS2. RODRIGUEZ unable to check in with patient on this day. Esther HANNAH
[2021-07-29 22:51] LABS: Bedside Glucose 144 mg/dL (70-110)
[2021-07-30 02:34] VITALS: PULSE 91
[2021-07-30 03:59] VITALS: BP 118/76; PULSE 95; RESP 14; TEMP 36.7; O2SAT 99
[2021-07-30] MEDS: 0.9% Normal Saline 1,000 ML 100 ML IV (04:04)
[2021-07-30 04:45] LABS: Absolute Lymphocyte Count 2.01 X10^3/uL (0.83-4.51); Absolute Neutrophil Count 4.8 X10^3/uL (2.0-7.7); Basophil# 0.04 X10^3/uL; Basophil% 0.5 % (0-1); Eosinophil# 0.17 X10^3/uL; Eosinophils% 2.2 % (0-5); Hematocrit 32.4 % (37-47); Hemoglobin 10.5 g/dL (12.0-15.0); Lymphocyte # 2.01 X10^3/ul (0.83-4.51); Lymphocyte % 25.9 % (19-41); Mean Corp Hgb Conc 32.4 g/dL (32-36); Mean Corpuscular Hgb 27.9 pg (27.0-32.0); Mean Corpuscular Volume 85.9 fL (81-99); Mean Platelet Vol. 9.1 fl (6.2-12.0); Monocyte# 0.71 X10^3/uL; Monocyte% 9.1 % (0-10); NRBC Flagged by Analyzer 0 % (0-5); Neutrophil # 4.83 X10^3/uL (2.7-7.7); Neutrophil % 62.2 % (47-70); Platelet Count 323 K/mm3 (150-450); RBC Distribution Width CV 14.7 % (11.6-14.6); RBC Distribution Width SD 45.9 fl (35.1-43.9); Red Blood Count 3.77 M/mm3 (4.2-5.4); White Blood Count 7.8 K/mm3 (4.4-11.0)
[2021-07-30 05:05] LABS: Anion Gap 6 (5-15); BUN 28 mg/dL (7-18); BUN/Creat Ratio 57.1 RATIO (10-20); Calcium,Total 7.6 mg/dL (8.5-10.1); Chloride 112 mmol/L (98-107); Creatinine, Serum 0.49 mg/dL (0.55-1.02); EST Glomerular Filtration Rate 150 mL/min (>60); Est Glom Filt Rate - Afr Amer 182 mL/min (>60); Estimated Creatinine Clearance 108.38 ml/min; Glucose 84 mg/dL (74-106); Potassium 3.7 mmol/L (3.5-5.1); Sodium Level 138 mmol/L (136-145)
[2021-07-30] MEDS: Glucerna Shake 120 ML LIQUID PO (09:00)
[2021-07-30 09:01] LABS: Bedside Glucose 81 mg/dL (70-110)
[2021-07-30] MEDS: Insulin Lispro 100 UNIT/ML INSULN.PEN 20 UNIT SC ×2 (09:16→12:12)
[2021-07-30 09:20] VITALS: BP 109/72; PULSE 88; RESP 15; TEMP 36.6; O2SAT 100
--- NOTE | 2021-07-30 09:31 | PN.HOSP_ITS ---
Subjective Subjective Doing well, no issues overnight. Feels better this morning. Objective Data Objective Data Vital Signs: Vital Signs Temp Pulse Resp BP Pulse Ox 97.8 F 88 15 109/72 100 07/30/21 09:20 07/30/21 09:20 07/30/21 09:20 07/30/21 09:20 07/30/21 09:20 Oxygen Delivery Method Room Air Weight: 97 lb 3.582 oz Body Mass Index (BMI) 15.9 Intake & Output: Intake and Output for Last 24 Hours 07/29/21 07/30/21 07/31/21 03:59 03:59 03:59 Intake Total 1331.93 / 1331.93 1840.00 / 1840.00 Output Total 1250 / 1250 Balance 81.93 / 81.93 1840.00 / 1840.00 Medical Nutrition Assessment Dietitian: Malnutrition Criteria Met Start: 07/28/21 10:24 Freq: Status: Active Protocol: Document 07/28/21 10:26 (Rec: 07/28/21 10:26 [id number]) Nutrition Malnutrition Evidence of Malnutrition Exists Yes Malnutrition (severe): Acute Illness/Injury Evidenced By Suboptimal Energy Intake ( Severe),Weight Loss (Severe) Clinical Problem Acute Disease or Injury Related Malnutrition Etiology severe acute malnutrition r/t inadequate energy intake in context of social/ environmental circumstances Signs/Symptoms as evidenced by estimated PO intake meeting <50% of estimated nutritional needs x 1 month, unintentional wt loss of 6.8#/6.5% x 1 month, BMI 17.4 Status Active Problem Recommendation Dietitian Recommendations/Changes continue CHO controlled diet as tolerated; will add 120mL glucerna ONS 4x/day w/ medpass . Lab / Micro Data Result Diagrams: 07/30/21 04:38 07/30/21 04:38 Labs: Laboratory Results - last 24 hr 07/29/21 12:12: POC Glucose 302 H 07/29/21 16:42: POC Glucose 93 07/29/21 22:43: POC Glucose 144 H 07/30/21 04:38: WBC 7.8, RBC 3.77 L, Hgb 10.5 L, Hct 32.4 L, MCV 85.9, MCH 27.9, MCHC 32.4, RDW Std Deviation 45.9 H, RDW Coeff of Jordon 14.7 H, Plt Count 323, MPV 9.1, Immature Gran % (Auto) 0.100, Neut % (Auto) 62.2, Lymph % (Auto) 25.9, [place] % (Auto) 9.1, Eos % (Auto) 2.2, Baso % (Auto) 0.5, Absolute Neuts (auto) 4.8, Absolute Lymphs (auto) 2.01, Nucleated RBC % 0 07/30/21 04:38: Sodium 138, Potassium 3.7, Chloride 112 H, Carbon Dioxide 20.0 L , Anion Gap 6, BUN 28 H, Creatinine 0.49 L, Estim Creat Clear Calc 108.38, Est GFR (MDRD) Af Amer 182, Est GFR (MDRD) Non-Af 150, BUN/Creatinine Ratio 57.1 H, Glucose 84, Calcium 7.6 L 07/30/21 08:54: POC Glucose 81 Rhythm Strip Rhythm Strip: Sinus Rhythm Rate: 109 Ectopy: None Physical Exam Const alert, oriented x3 and no apparent distress General Appearance: cooperative HEENT normocephalic and moist oral mucous membranes Eyes PERRL, EOMs intact bilaterally and conjunctivae normal Neck supple and no JVD Resp normal respiratory effort, no retractions, no use of accessory muscles and clear to auscultation bilaterally Auscultation: Negative for crackles, rales, rhonchi or wheezes Cardio regular rate, regular rhythm, S1 normal heart sound, S2 normal heart sound and no murmurs GI soft to palpation, non-tender and non-distended; Negative for hepatosplenomegaly Extremity no clubbing, cyanosis or edema Skin no rashes or lesions noted Neuro no focal motor deficits and no sensory deficits noted Psych affect normal Appearance: appropriate Assessment & Plan Assessment/Plan (1) Nonketotic hyperglycinemia: PLAN: 1. Nonketotic hyperosmolar hyperglycemia/DM 1 -Very few ketones in the urine and no acetone in the blood -She is off of an insulin drip and is placed on long-acting insulin as well as 3 times daily insulin with meals -Accu-Cheks AC at bedtime, will make adjustments as necessary and monitor -Her diabetes is completely out of control, her A1c on admission was over 14 -Continue with IV fluids for dehydration, she did receive 2 doses of lactulose for constipation -[facility]/still confused by her DVT: Ambulation Charges/Coding Visit Charges Inpatient E&M: 13485 Subs Hosp L2
--- NOTE | 2021-07-30 09:47 | PCA ---
Pts spouse Arturo has called multiple times this morning 07/30, spouse is aware that we do not have a patient in our directory by this name, and is adamant that she is here and or was here this city secretary told him that I cannot look up her information if she is not listed on my directory. He expresses that he is very worried about her well being, questioned if he should call the [facility] teacher department because he has not seen or heard from her since 07/27. Called to security to let him know of the situation.
[2021-07-30 10:00] VITALS: PULSE 100
[2021-07-30 12:10] LABS: Bedside Glucose 171 mg/dL (70-110)
[2021-07-30] MEDS: Insulin Lispro 100 UNIT/ML INSULN.PEN SC ×2 (12:11→22:05)
--- NOTE | 2021-07-30 12:54 | NURSING ---
[facility] has bed available today. dr kaur and pt aware. this nurse checking with [facility] about insulin syringes
--- NOTE | 2021-07-30 13:34 | DCINST_ITS ---
Discharge Instructions Diet Discharge Diet: Carb Control Diet Activity Discharge Activity: Return to Normal Activity Dressing / Incision Call your doctor if you observe: Fever of 101 or Higher, Shortness of breath, Dizziness, Fainting spells, Swelling in the ankles, Chest pain and Increased palpitations (irregular heartbeat) Follow Up Care Test Results: Test results from this visit will be discussed in further detail at your follow-up appointment, if applicable. Discharge Plan Admission Admit Date/Time: 07/27/21 18:45 Attending Provider: Maynor Perez Primary Care Provider: Didier Hein Discharge Orders/Prescriptions Prescriptions: Changed insulin glargine 100 unit/mL Solution 30 unit SUBCUT BID Qty: 0 RF: 0 insulin aspart U-100 [Novolog U-100 Insulin aspart] 100 unit/mL solution 20 unit SC TID Qty: 10 RF: 0 Referrals / Follow Up: Carmelo Puckett MD [STAFF PHYSICIAN] - 08/08/21 3:00 pm (Dr Puckett appt will follow after appt w/Dashawn Luis NP) Care Physician,No Primary [NON-STAFF] - Dashawn Luis NP, JEWEL BEARING GRINDER-C [Nurse Practitioner] - 08/08/21 2:00 pm (Please arrive 15-[address] [facility] Van transportation will pick you up @ 1 PM to take you to this appt. ) Disposition Disposition (needs filled in before D/C Order can be placed): Home, Self Care
[2021-07-30 13:42] VITALS: BP 123/78; PULSE 106; RESP 18; TEMP 36.8; O2SAT 100
--- NOTE | 2021-07-30 13:43 | DS.PCM_ITS ---
Providers Date of Admission: 07/27/21 Primary Care Physician: Dr. Didier Hein MD Reason For Visit: HYPEROSMOLAR HYPERGLYCEMIA Diagnosis Discharge Diagnosis (1) Nonketotic hyperglycinemia: Status: Acute Code(s): E72.51 - Non-ketotic hyperglycinemia Medications at Discharge Home Medications insulin aspart U-100 [Novolog U-100 Insulin aspart] 20 unit SC TID #10 ml 07/30/21 insulin glargine 30 unit SUBCUT BID #0 ml 07/30/21 Hospital Course Operations None Procedures None Summary of Care Provided Minutes Spent on Discharge: 42 Hospital Course: Per HPI: ESTHER WEEMS, is a 36 F who presents to the emergency room at [facility] with a chief complaint of generalized abdominal pain, elevated blood sugar, and malaise. Patient is a type I diabetic, she tells me that she has been diabetic since the age of 10. Patient states her toy maker is in [employer], she states she has been living out of hotels and her car. Labs obtained were obtained in the emergency room, patient's CBC was unre markable except for a platelet count of 465,000. Patient's chemistry profile was abnormal for a sodium of 128, potassium of 6.1, chloride of 94, creatinine of 1.15, and glucose of 1141. Patient serum acetone level was negative, patient's urinalysis was remarkable for a urine glucose over thousand and ketones of 5 mg/dL. Patient had a CAT scan of her abdomen performed, it showed a large amount of stool throughout the colon, it also showed gastric contents suggestive of gastroparesis. Patient also had a distended urinary bladder. A [place] catheter will be inserted in the ER, patient will be placed on insulin drip and she will be admitted to ICU for nonketotic hyperosmolar hyperglycemia. Patient will be given IV fluids, labs will be monitored. Hospital Course: 1. Nonketotic hyperosmolar hyperglycemia/DM 1 -Very few ketones in the urine and no acetone in the blood -She is off of an insulin drip and is placed on long-acting insulin as well as 3 times daily insulin with meals -Accu-Cheks AC at bedtime, will make adjustments as necessary and monitor -Her diabetes is completely out of control, her A1c on admission was over 14 -Continue with IV fluids for dehydration, she did receive 2 doses of lactulose for constipation -Attempting to discharge to a [place] [facility]/still confused by her -We will plan for discharge today, unfortunately she cannot bill to insurance for more syringes since she had just recently got them filled before she had to leave them in her 's car after he threw her out. [facility] will give her a box of older syringes that should work and then she can hopefully get a set of insurance she is next month. We will continue with her insulin dosing at 30 units twice daily Lantus and then her 3 times daily dosing of NovoLog at 20 units. I discussed with her that given these changes she needs to check her blood sugars more frequently and make adjustments as necessary. I discussed with her the plan for discharge today and she expressed understanding the risk and benefits of going to the [facility] [place] [facility] today. She is aware that they can hold a bed for her so we will plan on getting her there today. Medical Records Data Medical Nutrition Assessment Dietitian: Malnutrition Criteria Met Start: 07/28/21 10:24 Freq: Status: Active Protocol: Document 07/28/21 10:26 (Rec: 07/28/21 10:26 [id number]) Nutrition Malnutrition Evidence of Malnutrition Exists Yes Malnutrition (severe): Acute Illness/Injury Evidenced By Suboptimal Energy Intake ( Severe),Weight Loss (Severe) Clinical Problem Acute Disease or Injury Related Malnutrition Etiology severe acute malnutrition r/t inadequate energy intake in context of social/ environmental circumstances Signs/Symptoms as evidenced by estimated PO intake meeting <50% of estimated nutritional needs x 1 month, unintentional wt loss of 6.8#/6.5% x 1 month, BMI 17.4 Status Active Problem Recommendation Dietitian Recommendations/Changes continue CHO controlled diet as tolerated; will add 120mL glucerna ONS 4x/day w/ medpass . Weight / BMI Weight Weight: 97 lb 3.582 oz Body Mass Index (BMI) 15.9 ABG / Lab / Microbiology Data Result Diagrams: 07/30/21 04:38 07/30/21 04:38 Laboratory: Laboratory Results - last 24 hr 07/29/21 16:42: POC Glucose 93 07/29/21 22:43: POC Glucose 144 H 07/30/21 04:38: WBC 7.8, RBC 3.77 L, Hgb 10.5 L, Hct 32.4 L, MCV 85.9, MCH 27.9, MCHC 32.4, RDW Std Deviation 45.9 H, RDW Coeff of Jordon 14.7 H, Plt Count 323, MPV 9.1, Immature Gran % (Auto) 0.100, Neut % (Auto) 62.2, Lymph % (Auto) 25.9, [place] % (Auto) 9.1, Eos % (Auto) 2.2, Baso % (Auto) 0.5, Absolute Neuts (auto) 4.8, Absolute Lymphs (auto) 2.01, Nucleated RBC % 0 07/30/21 04:38: Sodium 138, Potassium 3.7, Chloride 112 H, Carbon Dioxide 20.0 L , Anion Gap 6, BUN 28 H, Creatinine 0.49 L, Estim Creat Clear Calc 108.38, Est GFR (MDRD) Af Amer 182, Est GFR (MDRD) Non-Af 150, BUN/Creatinine Ratio 57.1 H, Glucose 84, Calcium 7.6 L 07/30/21 08:54: POC Glucose 81 07/30/21 12:04: POC Glucose 171 H D/C Instructions Discharge Diet: Carb Control Diet Call your doctor if you observe: Fever of 101 or Higher, Shortness of breath, Dizziness, Fainting spells, Swelling in the ankles, Chest pain and Increased palpitations (irregular heartbeat) Meaningful Use Info Meaningful Use Diagnoses (Choose all that apply): None applicable Discharge Plan Admission Admit Date/Time: 07/27/21 18:45 Attending Provider: Maynor Perez Primary Care Provider: Didier Hein Discharge Orders/Prescriptions Prescriptions: Changed insulin glargine 100 unit/mL Solution 30 unit SUBCUT BID Qty: 0 RF: 0 insulin aspart U-100 [Novolog U-100 Insulin aspart] 100 unit/mL solution 20 unit SC TID Qty: 10 RF: 0 Referrals / Follow Up: Carmelo Puckett MD [STAFF PHYSICIAN] - 08/08/21 3:00 pm (Dr Puckett appt will follow after appt w/Dashawn Luis NP) Care Physician,No Primary [NON-STAFF] - Dashawn Luis NP, MARKETING PROJECT MANAGER-C [Nurse Practitioner] - 08/08/21 2:00 pm (Please arrive 15-30 min early. [facility] Van transportation will pick you up @ 1 PM to take you to this appt. ) Disposition Disposition (needs filled in before D/C Order can be placed): Home, Self Care Charges/Coding Visit Charges Inpatient E&M: 93113 Disch Hosp
[2021-07-30 15:21] LABS: Bedside Glucose 40 mg/dL (70-110)
--- NOTE | 2021-07-30 15:31 | NURSING ---
[employer] WAS CALLED FOR TRANSPORTATION OF PT TO [facility] AND THEN [address] [place] [address]. THEY WERE INSTRUCTED TO CALL WHEN THEY ARRIVE AND MEET AROUND BACK AT [address], SECURITY WILL ACCOMPANYING US DOWN
[2021-07-30 15:41] LABS: Bedside Glucose 61 mg/dL (70-110)
[2021-07-30 15:58] LABS: Glucose 55 mg/dL (74-106)
[2021-07-30] MEDS: Glucose Oral Gel 15 GM Tube PO (16:00)
[2021-07-30 16:01] LABS: Bedside Glucose 43 mg/dL (70-110)
[2021-07-30 16:35] LABS: Bedside Glucose 52 mg/dL (70-110)
--- NOTE | 2021-07-30 16:38 | NURSING ---
DC NOW CANCELLED, REPEAT BLOOD SUGAR OF 51 AFTER ORAL GLUCOSE. PT ORDERING SUPPER. [facility] MADE AWARE THAT PT IS NOT BEING DC'D TONIGHT.
[2021-07-30 18:00] LABS: Bedside Glucose 203 mg/dL (70-110)
[2021-07-30 22:01] VITALS: BP 128/73; PULSE 103; RESP 18; TEMP 36.7; O2SAT 99
[2021-07-31 02:21] LABS: Bedside Glucose 328 mg/dL (70-110)
[2021-07-31 05:46] VITALS: BP 126/82; PULSE 102; RESP 16; TEMP 36.7; O2SAT 99
[2021-07-31] MEDS: Insulin Lispro 100 UNIT/ML INSULN.PEN SC (08:03)
[2021-07-31] MEDS: Insulin Lispro 100 UNIT/ML INSULN.PEN 15 UNIT SC (08:03)
[2021-07-31] MEDS: Acetaminophen 325 MG Tablet 650 MG PO (08:09)
[2021-07-31 08:15] LABS: Bedside Glucose 268 mg/dL (70-110)
--- NOTE | 2021-07-31 08:55 | CASEMGMT ---
SW called our retail pharmacy to see about pt getting her medication here, however they do not have the needed insulin in vials, only in pens. SW spoke w/pt, she prefers the vials and needles and would rather stop to picker box operator the medication at [facility]. As per pt, physician to discharge her this afternoon. SW asked pt to call to [facility] to make sure they still have a spot for her, and then when she is ready will arrange for the taxi again to take her to [facility] and then to the care home. Pt states her insurance should actually cover the prescriptions. SW will continue to follow, available to assist as needed. RILEY Alexander
--- NOTE | 2021-07-31 10:08 | PN.HOSP_ITS ---
Subjective Subjective Doing well, blood sugars are little bit better controlled today Objective Data Objective Data Vital Signs: Vital Signs Temp Pulse Resp BP Pulse Ox 98.0 F 102 H 16 126/82 H 99 07/31/21 05:46 07/31/21 05:46 07/31/21 05:46 07/31/21 05:46 07/31/21 05:46 Oxygen Delivery Method Room Air Weight: 97 lb 3.582 oz Body Mass Index (BMI) 15.9 Intake & Output: Intake and Output for Last 24 Hours 07/30/21 07/31/21 08/01/21 03:59 03:59 03:59 Intake Total 1840.00 / 1840.00 1000 / 1000 Balance 1840.00 / 1840.00 1000 / 1000 Medical Nutrition Assessment Dietitian: Malnutrition Criteria Met Start: 07/28/21 10:24 Freq: Status: Active Protocol: Document 07/28/21 10:26 AG (Rec: 07/28/21 10:26 [id number]) Nutrition Malnutrition Evidence of Malnutrition Exists Yes Malnutrition (severe): Acute Illness/Injury Evidenced By Suboptimal Energy Intake ( Severe),Weight Loss (Severe) Clinical Problem Acute Disease or Injury Related Malnutrition Etiology severe acute malnutrition r/t inadequate energy intake in context of social/ environmental circumstances Signs/Symptoms as evidenced by estimated PO intake meeting <50% of estimated nutritional needs x 1 month, unintentional wt loss of 6.8#/6.5% x 1 month, BMI 17.4 Status Active Problem Recommendation Dietitian Recommendations/Changes continue CHO controlled diet as tolerated; will add 120mL glucerna ONS 4x/day w/ medpass . Lab / Micro Data Result Diagrams: 07/30/21 04:38 07/30/21 15:43 Labs: Laboratory Results - last 24 hr 07/30/21 12:04: POC Glucose 171 H 07/30/21 15:14: POC Glucose 40 L* 07/30/21 15:36: POC Glucose 61 L 07/30/21 15:43: Glucose 55 L 07/30/21 15:57: POC Glucose 43 L* 07/30/21 16:31: POC Glucose 52 L 07/30/21 17:51: POC Glucose 203 H 07/30/21 22:00: POC Glucose 328 H 07/31/21 08:00: POC Glucose 268 H Rhythm Strip Rhythm Strip: Sinus Rhythm Rate: 109 Ectopy: None Physical Exam Const alert, oriented x3 and no apparent distress General Appearance: cooperative HEENT normocephalic and moist oral mucous membranes Eyes PERRL, EOMs intact bilaterally and conjunctivae normal Neck supple and no JVD Resp normal respiratory effort, no retractions, no use of accessory muscles and clear to auscultation bilaterally Auscultation: Negative for crackles, rales, rhonchi or wheezes Cardio regular rate, regular rhythm, S1 normal heart sound, S2 normal heart sound and no murmurs GI soft to palpation, non-tender and non-distended; Negative for hepatosplenomegaly Extremity no clubbing, cyanosis or edema Skin no rashes or lesions noted Neuro no focal motor deficits and no sensory deficits noted Psych affect normal Appearance: appropriate Assessment & Plan Assessment/Plan (1) Nonketotic hyperglycinemia: PLAN: 1. Nonketotic hyperosmolar hyperglycemia/DM 1 -Very few ketones in the urine and no acetone in the blood -She is off of an insulin drip and is placed on long-acting insulin as well as 3 times daily insulin with meals -Accu-Cheks AC at bedtime, will make adjustments as necessary and monitor -Her diabetes is completely out of control, her A1c on admission was over 14 -Attempting to discharge to a woman senior living/still confused by her DVT: Ambulation Charges/Coding Visit Charges Inpatient E&M: 51640 Subs Hosp L2
[2021-07-31 12:00] LABS: Bedside Glucose 81 mg/dL (70-110)
[2021-07-31] MEDS: Insulin Lispro 100 UNIT/ML INSULN.PEN 10 UNIT SC (12:47)
--- NOTE | 2021-07-31 13:30 | PCM.DC ---
Discharge Instructions Diet Discharge Diet: Carb Control Diet Dressing / Incision Call your doctor if you observe: Fever of 101 or Higher, Shortness of breath, Dizziness, Fainting spells, Swelling in the ankles, Chest pain and Increased palpitations (irregular heartbeat) Follow Up Care Test Results: Test results from this visit will be discussed in further detail at your follow-up appointment, if applicable. Discharge Plan Admission Admit Date/Time: 07/27/21 18:45 Attending Provider: Maynor Perez Primary Care Provider: Didier Hein Instructions Additional Instructions / Restrictions: Follow-up with your PCP as an outpatient to monitor your blood sugars. I do recommend that the adjustments made in your insulin that you monitor your blood sugars frequently until stable. Discharge Orders/Prescriptions Prescriptions: Changed insulin aspart U-100 [Novolog U-100 Insulin aspart] 100 unit/mL solution 10 unit SC TID Qty: 10 RF: 0 insulin glargine 100 unit/mL Solution 30 unit SUBCUT DAILY Qty: 0 RF: 0 Referrals / Follow Up: Carmelo Puckett MD [STAFF PHYSICIAN] - 08/08/21 3:00 pm (Dr Puckett appt will follow after appt w/Dashawn Luis NP) Care Physician,No Primary [NON-STAFF] - Dashawn Luis NP, CIRCUIT BOARD REPAIR TECHNICIAN-C [Nurse Practitioner] - 08/08/21 2:00 pm (Please arrive 15-30 min early. [facility] Van transportation will pick you up @ 1 PM to take you to this appt. ) Disposition Disposition (needs filled in before D/C Order can be placed): Home, Self Care
--- NOTE | 2021-07-31 13:33 | PCM.DC.SUM ---
Providers Date of Admission: 07/27/21 Primary Care Physician: Dr. Didier Hein MD Reason For Visit: HYPEROSMOLAR HYPERGLYCEMIA Diagnosis Discharge Diagnosis (1) Nonketotic hyperglycinemia: Status: Acute Code(s): E72.51 - Non-ketotic hyperglycinemia Medications at Discharge Home Medications insulin aspart U-100 [Novolog U-100 Insulin aspart] 10 unit SC TID #10 ml 07/31/21 insulin glargine 30 unit SUBCUT DAILY #0 ml 07/31/21 Hospital Course Operations None Procedures None Summary of Care Provided Minutes Spent on Discharge: 45 Hospital Course: Per HPI: ESTHER WEEMS, is a 36 F who presents to the emergency room at [facility] with a chief complaint of generalized abdominal pain, elevated blood sugar, and malaise. Patient is a type I diabetic, she tells me that she has been diabetic since the age of 10. Patient states her physical therapy assistant is in [facility], she states she has been living out of hotels and her car. Labs obtained were obtained in the emergency room, patient's CBC was unremarkable except for a platelet count of 465,000. Patient's chemistry profile was abnormal for a sodium of 128, potassium of 6.1, chloride of 94, creatinine of 1.15, and glucose of 1141. Patient serum acetone level was negative, patient's urinalysis was remarkable for a urine glucose over thousand and ketones of 5 mg/dL. Patient had a CAT scan of her abdomen performed, it showed a large amount of stool throughout the colon, it also showed gastric contents suggestive of gastroparesis. Patient also had a distended urinary bladder. A N[place] catheter will be inserted in the ER, patient will be placed on insulin drip and she will be admitted to ICU for nonketotic hyperosmolar hyperglycemia. Patient will be given IV fluids, labs will be monitored Hospital Course: 1. Nonketotic hyperosmolar hyperglycemia/DM 1 -Very few ketones in the urine and no acetone in the blood -She is off of an insulin drip and is placed on long-acting insulin as well as 3 times daily insulin with meals -Accu-Cheks AC at bedtime, will make adjustments as necessary and monitor -Her diabetes is completely out of control, her A1c on admission was over 14 -Continue with IV fluids for dehydration, she did receive 2 doses of lactulose for constipation -Attempting to discharge to a woman custodial/still confused by her -We will plan for discharge today, unfortunately she cannot bill to insurance for more syringes since she had just recently got them filled before she had to leave them in her 's car after he threw her out. [facility]Dor[facility] will give her a box of older syringes that should work and then she can hopefully get a set of insurance she is next month. We will continue with her insulin dosing at 30 units daily of Lantus and then her 3 times daily dosing of NovoLog at 10 units. Her discharge had to be canceled yesterday secondary to hypoglycemia therefore I have made more adjustments into her insulin dosing as described above. I discussed with her that given these changes she needs to check her blood sugars more frequently and make adjustments as necessary. I discussed with her the plan for discharge today and she expressed understanding the risk and benefits of going to the woman's custodial today. She is aware that they can hold a bed for her so we will plan on getting her there today. Medical Records Data Medical Nutrition Assessment Dietitian: Malnutrition Criteria Met Start: 07/28/21 10:24 Freq: Status: Active Protocol: Document 07/28/21 10:26 AG (Rec: 07/28/21 10:26 AG [id number]) Nutrition Malnutrition Evidence of Malnutrition Exists Yes Malnutrition (severe): Acute Illness/Injury Evidenced By Suboptimal Energy Intake ( Severe),Weight Loss (Severe) Clinical Problem Acute Disease or Injury Related Malnutrition Etiology severe acute malnutrition r/t inadequate energy intake in context of social/ environmental circumstances Signs/Symptoms as evidenced by estimated PO intake meeting <50% of estimated nutritional needs x 1 month, unintentional wt loss of 6.8#/6.5% x 1 month, BMI 17.4 Status Active Problem Recommendation Dietitian Recommendations/Changes continue CHO controlled diet as tolerated; will add 120mL glucerna ONS 4x/day w/ medpass . Weight / BMI Weight Weight: 97 lb 3.582 oz Body Mass Index (BMI) 15.9 ABG / Lab / Microbiology Data Result Diagrams: 07/30/21 04:38 07/30/21 15:43 Laboratory: Laboratory Results - last 24 hr 07/30/21 15:14: POC Glucose 40 L* 07/30/21 15:36: POC Glucose 61 L 07/30/21 15:43: Glucose 55 L 07/30/21 15:57: POC Glucose 43 L* 07/30/21 16:31: POC Glucose 52 L 07/30/21 17:51: POC Glucose 203 H 07/30/21 22:00: POC Glucose 328 H 07/31/21 08:00: POC Glucose 268 H 07/31/21 11:52: POC Glucose 81 D/C Instructions Discharge Diet: Carb Control Diet Call your doctor if you observe: Fever of 101 or Higher, Shortness of breath, Dizziness, Fainting spells, Swelling in the ankles, Chest pain and Increased palpitations (irregular heartbeat) Meaningful Use Info Meaningful Use Diagnoses (Choose all that apply): None applicable Discharge Plan Admission Admit Date/Time: 07/27/21 18:45 Attending Provider: Maynor Perez Primary Care Provider: Didier Hein Instructions Additional Instructions / Restrictions: Follow-up with your PCP as an outpatient to monitor your blood sugars. I do recommend that the adjustments made in your insulin that you monitor your blood sugars frequently until stable. Discharge Orders/Prescriptions Prescriptions: Changed insulin aspart U-100 [Novolog U-100 Insulin aspart] 100 unit/mL solution 10 unit SC TID Qty: 10 RF: 0 insulin glargine 100 unit/mL Solution 30 unit SUBCUT DAILY Qty: 0 RF: 0 Referrals / Follow Up: Carmelo Puckett MD [STAFF PHYSICIAN] - 08/08/21 3:00 pm (Dr Puckett appt will follow after appt w/Dashawn Luis NP) Care Physician,No Primary [NON-STAFF] - Dashawn Luis NP, [employer] [Nurse Practitioner] - 08/08/21 2:00 pm (Please arrive 15-30 min early. [facility] Van transportation will pick you up @ 1 PM to take you to this appt. ) Disposition Disposition (needs filled in before D/C Order can be placed): Home, Self Care Charges/Coding Visit Charges Inpatient E&M: 12203 Disch Hosp
--- NOTE | 2021-07-31 14:38 | CASEMGMT ---
Pt is ready for discharge. SW spoke w/[facility], they will be here in 30-45 minutes, they are to go to door 28, they are to call the floor when they arrive. RODRIGUEZ called Officer Emily, he will meet pt and taxi at the door. RILEY Alexander
[2021-07-31 14:46] LABS: Bedside Glucose 87 mg/dL (70-110)
== END 2021-07-31 15:25 | disposition home or self-care (01) | DRG 420 ==
LOC: ED 18:45 → ICU 19:10 → MS2 07-29 17:24
PROVIDERS: Admitting Provider Internal Medicine; Emergency Provider Emergency Medicine; PCP Internal Medicine; Visit Provider Family Medicine
DX: E10.65 Type 1 diabetes mellitus with hyperglycemia (principal); E43 Unspecified severe protein-calorie malnutrition; K31.84 Gastroparesis; E10.43 Type 1 diabetes mellitus with diabetic autonomic (poly)neuropathy; E10.649 Type 1 diabetes mellitus with hypoglycemia without coma; E86.0 Dehydration; Z79.4 Long term (current) use of insulin; D64.9 Anemia, unspecified; E87.5 Hyperkalemia; K59.00 Constipation, unspecified; F17.210 Nicotine dependence, cigarettes, uncomplicated; Z68.1 Body mass index [BMI] 19.9 or less, adult
CPT/HCPCS: 36415; 74177; 80048; 80053; 81001; 82009; 82947; 82962; 83036; 83690; 84703; 85025; 93005; 97802; 99285; J7030; Q9967; A4216; J7799

== ENCOUNTER → 2022-11-23 | Outpatient (CLI) | payer MEDICAID, SELFPAY ==
[2022-11-23 18:07] LABS: Microalbumin:Creatinine Ratio 181.7 mg/g CRE (<30 mg/g CRE)
[2022-11-23 18:29] LABS: ALB/GLOB Ratio 0.8 RATIO (0.9-2.4); AST(SGOT) 25 U/L (15-37); Alanine Aminotransfer ALT/SGPT 37 U/L (13-56); Albumin, Serum 2.8 g/dL (3.2-5.0); Alkaline Phosphatase 86 U/L (45-117); Anion Gap 6 (5-15); BUN 19 mg/dL (7-18); BUN/Creat Ratio 28.2 RATIO (10-20); Calcium,Total 8.5 mg/dL (8.5-10.1); Chloride 104 mmol/L (98-107); Cholesterol 192 mg/dL (200); Creatinine, Serum 0.67 mg/dL (0.55-1.02); EST Glomerular Filtration Rate 103 mL/min (>60); Est Glom Filt Rate - Afr Amer 125 mL/min (>60); Globulin 3.7 g/dL (2.2-4.2); Glucose 262 mg/dL (74-106); High Density Lipoprotein 58 mg/dL; Potassium 4.3 mmol/L (3.5-5.1); Protein, Total 6.5 g/dL (6.4-8.2); Sodium Level 137 mmol/L (136-145); Thyroid Stim Hormone (TSH) 1.93 uIU/mL (0.358-3.74); Triglycerides 179 mg/dL; Very Low Density Lipoprotein 36 mg/dL (5-40)
== END | disposition home or self-care (01) ==
PROVIDERS: PCP Internal Medicine; Referring Provider Internal Medicine Endocrinology, Diabetes & Metabolism; Visit Provider Internal Medicine Endocrinology, Diabetes & Metabolism
DX: E10.65 Type 1 diabetes mellitus with hyperglycemia (principal)
CPT/HCPCS: 36415; 80053; 80061; 82043; 82570; 84443

== ENCOUNTER → 2023-03-21 | Outpatient (CLI) | payer MEDICAID, SELFPAY ==
[2023-03-25 21:07] LABS: HPV APTIMA, High Risk Negative (Negative)
== END | disposition home or self-care (01) ==
LOC: LABSPEC 13:54
PROVIDERS: PCP Internal Medicine; Visit Provider Nurse Practitioner Women's Health
DX: Z12.4 Encounter for screening for malignant neoplasm of cervix (principal)
CPT/HCPCS: 87624; 88175; G0145

== ENCOUNTER → 2024-05-27 | Outpatient (CLI) | payer MEDICAID, SELFPAY ==
[2024-05-27 15:57] LABS: ALB/GLOB Ratio 0.7 RATIO (0.9-2.4); AST(SGOT) 22 U/L (15-37); Alanine Aminotransfer ALT/SGPT 29 U/L (13-56); Albumin, Serum 2.7 g/dL (3.2-5.0); Alkaline Phosphatase 62 U/L (45-117); Anion Gap 6 (5-15); BUN 16 mg/dL (7-18); BUN/Creat Ratio 15.8 RATIO (10-20); Calcium,Total 8.7 mg/dL (8.5-10.1); Chloride 106 mmol/L (98-107); Cholesterol 181 mg/dL (200); Creatinine, Serum 1.01 mg/dL (0.55-1.02); EST Glomerular Filtration Rate 64 mL/min (>60); Est Glom Filt Rate - Afr Amer 78 mL/min (>60); Globulin 3.8 g/dL (2.2-4.2); Glucose 187 mg/dL (74-106); High Density Lipoprotein 61 mg/dL; Potassium 4.8 mmol/L (3.5-5.1); Protein, Total 6.5 g/dL (6.4-8.2); Sodium Level 137 mmol/L (136-145); Triglycerides 108 mg/dL; Very Low Density Lipoprotein 22 mg/dL (5-40)
[2024-05-27 16:34] LABS: Vitamin D,25 Hydroxy 21.8 ng/mL
== END | disposition home or self-care (01) ==
PROVIDERS: PCP Internal Medicine; Referring Provider Nurse Practitioner Family; Visit Provider Nurse Practitioner Family
DX: E10.65 Type 1 diabetes mellitus with hyperglycemia (principal)
CPT/HCPCS: 36415; 80053; 80061; 82043; 82306; 82570; 84443